=== PATIENT | female | born 1970 ===

== ENCOUNTER 2017-11-16 09:21 | Outpatient (CLI) | payer OTHER | END 2017-11-16 09:35 | disposition home or self-care (01) | LOC: RAD 09:21 | DX: G44.89 Other headache syndrome (principal) ==

== ENCOUNTER 2018-07-23 11:21 | Outpatient (CLI) | payer OTHER | END 2018-07-23 11:30 | disposition home or self-care (01) | LOC: RAD 501 11:21 | DX: M24.50 Contracture, unspecified joint (principal) ==

== ENCOUNTER 2019-05-27 12:16 | Outpatient (CLI) | payer OTHER | END 2019-05-27 15:17 | disposition home or self-care (01) | LOC: RAD 12:16 | DX: M79.644 Pain in right finger(s) (principal) ==

== ENCOUNTER 2020-05-30 08:34 | Outpatient (CLI) | payer OTHER | END 2020-05-30 08:44 | disposition home or self-care (01) | LOC: RAD 08:34 | PROVIDERS: ATTEND Surgery Surgery of the Hand | DX: M54.89 Other dorsalgia (principal); N20.0 Calculus of kidney; I87.8 Other specified disorders of veins ==

== ENCOUNTER 2020-06-27 09:47 | Outpatient (CLI) | payer OTHER | END 2020-06-27 10:19 | disposition home or self-care (01) | LOC: RAD 09:47 | PROVIDERS: ATTEND Surgery Surgery of the Hand | DX: M25.511 Pain in right shoulder (principal); M47.892 Other spondylosis, cervical region ==

== ENCOUNTER 2020-11-05 10:37 | Outpatient (CLI) | payer OTHER | END 2020-11-05 10:57 | disposition home or self-care (01) | LOC: MAMO-SONO 10:37 | PROVIDERS: ATTEND Obstetrics & Gynecology | DX: N60.12 Diffuse cystic mastopathy of left breast (principal); N60.11 Diffuse cystic mastopathy of right breast; Z12.31 Encounter for screening mammogram for malignant neoplasm of breast ==

== ENCOUNTER 2021-01-29 10:30 | Outpatient (CLI) | payer OTHER | END 2021-01-29 11:12 | disposition home or self-care (01) | LOC: MRI 10:30 | PROVIDERS: ATTEND Surgery Surgery of the Hand | DX: M51.37 Other intervertebral disc degeneration, lumbosacral region (principal) | CPT/HCPCS: 72141; 72148 ==

== ENCOUNTER 2022-01-13 08:34 | Outpatient (CLI) | payer OTHER | END 2022-01-13 08:47 | disposition home or self-care (01) | LOC: MAMO-SONO 08:34 | PROVIDERS: ATTEND Obstetrics & Gynecology | DX: Z12.31 Encounter for screening mammogram for malignant neoplasm of breast (principal); N60.11 Diffuse cystic mastopathy of right breast; N60.12 Diffuse cystic mastopathy of left breast ==

== ENCOUNTER 2023-01-09 10:41 | Outpatient (CLI) | payer OTHER | END 2023-01-09 10:54 | disposition home or self-care (01) | LOC: MAMO-SONO 10:41 | PROVIDERS: ATTEND Obstetrics & Gynecology | DX: Z12.31 Encounter for screening mammogram for malignant neoplasm of breast (principal); N60.11 Diffuse cystic mastopathy of right breast; N60.12 Diffuse cystic mastopathy of left breast ==

== ENCOUNTER 2023-03-07 10:09 | Outpatient (CLI) | payer OTHER | END 2023-03-07 10:11 | disposition home or self-care (01) | LOC: SONOGRAMA 10:09 | PROVIDERS: ATTEND Surgery Surgery of the Hand | DX: R10.13 Epigastric pain (principal); M54.89 Other dorsalgia ==

== ENCOUNTER 2024-07-31 08:46 | Outpatient (CLI) | payer OTHER | END 2024-07-31 08:59 | disposition home or self-care (01) | LOC: MAMO-SONO 08:46 | PROVIDERS: ATTEND Obstetrics & Gynecology | DX: N60.11 Diffuse cystic mastopathy of right breast (principal); N60.12 Diffuse cystic mastopathy of left breast; Z12.31 Encounter for screening mammogram for malignant neoplasm of breast ==

== ENCOUNTER 2025-02-21 07:16 | Outpatient (CLI) | payer OTHER | END 2025-02-21 07:20 | disposition home or self-care (01) | LOC: SONOGRAMA 07:16 | PROVIDERS: ATTEND Internal Medicine Gastroenterology | DX: R10.9 Unspecified abdominal pain (principal); K82.9 Disease of gallbladder, unspecified ==